=== PATIENT | male | born 1950 | race Caucasian/White ===

== ENCOUNTER 2018-04-25 13:43 | Emergency (ER) | payer MEDICARE, MEDICAID ==
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
--- NOTE | 2018-04-25 15:14 | RAD ---
Indication: Left hip pain. 2 views of left hip and an AP view the pelvis demonstrates mild degenerative changes of left hip. There is no fracture or dislocation. No other bone or joint abnormality is identified. IMPRESSION: Mild degenerative changes of left hip. Pelvic ring is intact.
--- NOTE | 2018-04-25 15:15 | RAD ---
Indication: Left femur pain with weightbearing. 2 views of left femur demonstrates no fracture. No other bone or joint abnormality is identified. IMPRESSION: No fracture of the left femur is noted.
--- NOTE | 2018-04-25 15:21 | RAD ---
INDICATION: LEFT lower extremity pain. Assess for DVT. COMPARISON: No relevant prior exams available on the [facility] for comparison. TECHNIQUE: Rosenbaum scale, color Doppler, and spectral analysis of the deep veins of the LEFT lower extremity. Vessel compression, phasicity, and augmentation assessed. Images 1 through 4 are of the RIGHT common femoral vein. REPORT: The LEFT common femoral, great saphenous, profunda femoral, femoral, popliteal, peroneal, and posterior tibial veins are patent. Patency of the RIGHT common femoral vein documented. IMPRESSION: No evidence for LEFT lower extremity deep venous thrombosis.
[2018-04-25 15:31] LABS: ABS Basophils 0.1 10^3/ul (0-0.2); ABS Eosinophils 0.1 10^3/ul (0-0.6); ABS Lymphocytes 1.5 10^3/ul (1.0-4.8); ABS Monocytes 0.6 10^3/ul (0-0.8); ABS Nucleated RBC 0 10^3/ul; Eosinophil % 1.5 % (0-6); Hematocrit 41 % (42-52); Mean Corpuscular HGB Conc 34 g/dl (31-36); Mean Corpuscular Hemoglobin 34 pg (27-31); Mean Corpuscular Volume 99 fL (80-94); Mean Platelet Volume 8.6 um3 (7.4-10.4); Nucleated Red Blood Cells % 0; Platelet Count 168 10^3/ul (150-450); Red Blood Count 4.16 10^6/ul (4.00-5.40); Red Cell Distribution Width 15 % (10.5-15); White Blood Count 6.2 10^3/ul (3.5-10.8)
[2018-04-25 15:47] LABS: EGFR Non-African American 74.3 (>60)
[2018-04-25 17:12] VITALS: BP 132/98
== END 2018-04-25 17:11 | disposition home or self-care (01) ==
LOC: ED 13:43
DX: S81.802S Unspecified open wound, left lower leg, sequela (principal); F41.9 Anxiety disorder, unspecified; F17.210 Nicotine dependence, cigarettes, uncomplicated; Z79.01 Long term (current) use of anticoagulants; M79.605 Pain in left leg; X58.XXXS Exposure to other specified factors, sequela
CPT/HCPCS: 36415; 80053; 83605; 85025; 86140; 99282

== ENCOUNTER 2019-06-15 09:47 | Day surgery (SDC) | payer MEDICARE ==
--- NOTE | 2019-06-12 15:30 | HP ---
CC: Dr. Teresa Hu; [facility] * ADMITTING HISTORY AND PHYSICAL: DATE OF ADMISSION: 06/15/19 ADMITTING DIAGNOSES: 1. Multiple bladder calculi. 2. Neurogenic bladder. 3. Urinary retention. PLANNED PROCEDURE: Cystoscopy, fragmentation and removal of multiple bladder calculi. SURGEON: Dr. Scott. HISTORY OF PRESENT ILLNESS: Joel Singer is a 69-year-old gentleman, who had previously been evaluated at [facility]. He was noted to be in urinary retention and cystoscopy in my office had revealed multiple bladder calculi. He has now been started on intermittent self catheterization and would like to have treatment of the bladder calculi and is now being brought in for the same. PAST MEDICAL HISTORY: Extensive and is significant for: 1. Coronary artery disease. 2. History of atrial fibrillation. 3. Chronic venous ulcers with cellulitis of the foot. MEDICATIONS ON ADMISSION: 1. Nitroglycerin 0.4 mg p.r.n. 2. Bupropion 100 mg 1 tablet twice a day. 3. Bisoprolol 5 mg daily. 4. Ferrous sulfate 325 mg daily. 5. Doxazosin 2 mg daily. 6. Symbicort inhaler twice a day 2 puffs. 7. Tramadol p.r.n. ALLERGIES AND INTOLERANCES: CODEINE, SILDENAFIL, METHADONE. FAMILY HISTORY: Negative for bladder or prostate cancer. SOCIAL HISTORY: Smoking history: He is a former smoker with a 50 plus pack year smoking history, who quit about a month or so ago. PHYSICAL EXAMINATION GENERAL: Reveals a pleasant, elderly gentleman. VITAL SIGNS: Blood pressure is 122/76, pulse is 72 per minute, oxygen saturation 96% on room air, temperature 97. LUNGS: Clear bilaterally. CARDIOVASCULAR: S1, S2. No murmurs. ABDOMEN: Soft without masses. IMPRESSION: A 69-year-old gentleman with neurogenic bladder and multiple bladder calculi. PLAN: Planned procedure is cystoscopy, fragmentation and removal of bladder calculi. [id number]/[facility] #: [id number] [facility]
[~2019-06-15 09:47] MED LIST: Acetaminophen TAB* 325 MG PO ONE; Buffered Lidocaine 1% SYRIN* 1 ML/SYRINGE INTRADERM ONE; Famotidine IV* 10 MG/ML 2 ML (20 mg) IV ONE; Lactated Ringers 1000 ML Bag* 1,000 ML IV SCH
[2019-06-15] MEDS ORDERED: Acetaminophen TAB* 325 MG ONE ×2 (10:12→10:18)
[2019-06-15] MEDS ORDERED: cefTRIAXone(*) 2 GM ADDV.VIAL IVPB ONE (10:13)
[2019-06-15] MEDS ORDERED: Famotidine IV* 10 MG/ML 2 ML (20 mg) ONE (10:13)
[2019-06-15] MEDS ORDERED: Midazolam* 1 MG/ML 2 ML VIAL (2 MG) ONE (11:16)
[2019-06-15] MEDS ORDERED: fentaNYL* 50 MCG/ML 2 ML VIAL (100 MCG VIAL) ONE (11:16)
[2019-06-15] MEDS ORDERED: Chloroprocaine 2%* 20 ML VIAL ONE (11:52)
[2019-06-15] MEDS ORDERED: Dexamethasone IV* 4 MG/ML 1 ML (4 MG) ONE (12:20)
--- NOTE | 2019-06-15 14:10 | OP ---
CC: Dr. Teresa Hu * DATE OF OPERATION: 06/15/19 - [facility] DATE OF : 50 SURGEON: Dr. Lewis Scott. ANESTHESIOLOGIST: Dr. Polk. ANESTHESIA: Spinal. PRE-OP DIAGNOSES: 1. Urinary retention. 2. Bladder calculi. 3. Neurogenic bladder. POST-OP DIAGNOSES: 1. Urinary retention. 2. Bladder calculi. 3. Neurogenic bladder. OPERATIVE PROCEDURE: Cystoscopy, fragmentation and removal of bladder calculi. COMPLICATIONS: None. SPECIMEN: Fragments of bladder calculi. BLOOD LOSS: Less than 50 cc. CATHETER: 20-Kiswahili Bernard. INDICATIONS: Joel Singer is a 69-year-old gentleman with a longstanding history of voiding dysfunction. He was evaluated and noted to have bladder calculi. For his urinary retention, the plan has been for him to do intermittent self- catheterization. OPERATIVE FINDINGS: 1. Mild stricture urethral meatus. 2. Mildly enlarged prostate, predominantly median lobe. 3. Chronic inflammatory changes, floor of bladder. 4. Bladder calculi. POSTOPERATIVE CONDITION: Stable. DESCRIPTION OF PROCEDURE: After induction of spinal anesthesia, the patient was placed in dorsal lithotomy position. Sequential compression devices were not used at the patient's request (has a history of lower extremity cellulitis) . Cystoscopy was performed. There was a mild stricture noted at the urethral meatus, which was carefully dilated. The remainder of the urethra was unremarkable. There was mild predominant median lobe enlargement of the prostate. The bladder was examined. There were chronic inflammatory changes involving the floor and posterior bladder wall (history of indwelling Bernard catheter in the past). There were a few bladder calculi noted, most of these were soft, white bladder calculi and were basically disintegrated upon engaging with the stone crushing forceps. There were a few harder bladder calculi, which were broken up with the stone crushing forceps and the fragments were irrigated out. At the end of the procedure, there were no remaining calculi and there was no evidence of any injury to the bladder. A 20- Kiswahili Bernard was introduced without difficulty and connected to a drainage bag. The patient tolerated the procedure satisfactorily and was transferred back to the recovery area in stable condition. [id number]/[facility] #: [id number] [facility]
[2019-06-15 14:48] VITALS: BP 136/75
== END 2019-06-15 15:21 | disposition home or self-care (01) ==
LOC: OR 09:47
PROVIDERS: ATTEND Urology
PROC: 0TCB0ZZ Extirpation of Matter from Bladder, Open Approach (ICD-10-PCS; principal; 2019-06-15 11:45)
DX: N21.0 Calculus in bladder (principal); N40.1 Benign prostatic hyperplasia with lower urinary tract symptoms; R33.8 Other retention of urine; N31.9 Neuromuscular dysfunction of bladder, unspecified; I25.10 Atherosclerotic heart disease of native coronary artery without angina pectoris; I87.2 Venous insufficiency (chronic) (peripheral); G89.29 Other chronic pain; I48.91 Unspecified atrial fibrillation; Z79.01 Long term (current) use of anticoagulants; Z87.891 Personal history of nicotine dependence; Z79.891 Long term (current) use of opiate analgesic
CPT/HCPCS: 82365; 88300; A9270-GY; J0696; J1100; J2250; J2400; J3010